=== PATIENT | female | born 2000 | race Asian ===

== ENCOUNTER 2023-09-24 11:08 | Inpatient (IN) ==
[2023-09-24] MEDS ORDERED: ONDANSETRON INJ 2 MG/ML 2 ML VIAL IV STA (11:13)
[2023-09-24] MEDS ORDERED: KETOROLAC TROMETHAMINE 15 MG/ML VIAL IV ONE (11:13)
[2023-09-24] MEDS ORDERED: SODIUM CHLORIDE 0.9% 1,000 ML IV ONE (11:13)
[2023-09-24 12:11] LABS: Basophils # (auto) 0.07 K/uL (0.00-0.20); Basophils % (auto) 0.4 %; Eosinophils # (auto) 0.04 K/uL (0.00-0.50); Eosinophils % (auto) 0.2 %; Immature Granulocytes # (auto) 0.15 K/uL (0.01-0.20); Immature Granulocytes % (auto) 0.8 %; Lymphocytes # (auto) 1.43 K/uL (1.20-3.40); Lymphocytes % (auto) 7.3 %; Mean Corpuscular Hemoglobin 29.4 pg (25.0-34.0); Mean Corpuscular Hgb Conc 33.3 g/dL (32.0-36.0); Mean Corpuscular Volume 88.3 fL (80.0-100.0); Mean Platelet Volume 9.4 fL (9.4-12.4); Monocytes # (auto) 0.98 K/uL (0.11-0.59); Neutrophils # (auto) 16.91 K/uL (1.40-6.50); Neutrophils % (auto) 86.3 %; Platelet Count 440 K/uL (130-400); RDW Coefficient of Variation 11.3 % (11.5-14.5); RDW Standard Deviation 36.4 fL (36.4-46.3); White Blood Count 19.58 K/ul (4.8-10.8)
[2023-09-24] MEDS ORDERED: dexAMETHasone**PF** 10 MG/ML VIAL IV ONE (12:23)
[2023-09-24] MEDS ORDERED: AMPICILLIN/SULBACTAM SOD 3,000 MG in SODIUM CHLOR 0.9% MINI-B 100 ML IV STA (12:23)
[2023-09-24 12:31] LABS: Albumin Globulin Ratio 1.2 (0.9-2); Albumin Level 4.8 gm/dl (3.4-5.0); BUN Creatinine Ratio 15.2 (10-20); Bilirubin,Total 0.5 mg/dl (0.2-1.0); Calcium 9.7 mg/dl (8.6-10.3); Globulin 4.1 gm/dl (2.5-4.0); Potassium 3.8 mmol/L (3.5-5.1); Total Protein 8.9 gm/dl (6.0-8.3)
--- NOTE | 2023-09-24 12:38 | Electrocardiogram Report ---
Test Reason : Blood Pressure : / mmHG Vent. Rate : 106 BPM Atrial Rate : 106 BPM P-R Int : 136 ms QRS Dur : 078 ms QT Int : 316 ms P-R-T Axes : 050 116 029 degrees QTc Int : 419 ms Sinus tachycardia Right axis deviation Abnormal ECG No previous ECGs available Confirmed by Refugio Saba ([id number]) on 09/24/2023 12:38:45 PM Referred By: Confirmed By:Refugio Saba
[2023-09-24 13:02] LABS: Adenovirus PCR Not Detected (NotDetected); Bordetella parapertussis PCR Not Detected (NotDetected); Bordetella pertussis PCR Not Detected (NotDetected); Chlamydia pneumoniae PCR Not Detected (NotDetected); Coronavirus 229E PCR Not Detected (NotDetected); Coronavirus CoV-2 (COVID19)PCR Not Detected (NotDetected); Coronavirus HKU1 PCR Not Detected (NotDetected); Coronavirus NL63 PCR Not Detected (NotDetected); Coronavirus OC43PCR Not Detected (NotDetected); Human Metapneumovirus PCR Not Detected (NotDetected); Influenza A PCR Not Detected (NotDetected); Influenza B PCR Not Detected (NotDetected); Mycoplasma pneumoniae PCR Not Detected (NotDetected); Parainfluenza Virus 1 PCR Not Detected (NotDetected); Parainfluenza Virus 2 PCR Not Detected (NotDetected); Parainfluenza Virus 3 PCR Not Detected (NotDetected); Parainfluenza Virus 4 PCR Not Detected (NotDetected); Respiratory Syncytial VirusPCR Not Detected (NotDetected); Rhinovirus/Enterovirus PCR Not Detected (NotDetected)
--- NOTE | 2023-09-24 13:14 | XRay Report ---
XR soft tissue neck CLINICAL HISTORY: Sore throat. COMPARISON STUDY: None. FINDINGS: There is mild diffuse prevertebral soft tissue thickening. There is also mild thickening of the epiglottis and aryepiglottic folds. No radiopaque foreign bodies identified. The trachea is midl ine and appears patent. No soft tissue gas identified. IMPRESSION: Diffuse thickening of the hypopharynx which favors a pharyngitis. There is also thickeni ng of the epiglottis raising the possibility of a superimposed epiglottitis. ACT 112: Negative or not required by law. Electronically signed by: Bib Fitch M.D. 09/24/2023 1:13 PM
[2023-09-24] MEDS ORDERED: SODIUM CHLORIDE 0.9% 500 ML IV ONE (13:20)
--- NOTE | 2023-09-24 13:25 | Emergency Department Note ---
Impression & Plan Acute epiglottitis, Pharyngitis, Sinus tachycardia ED Provider Note NAME: BORIS LUTHER AGE: 23 SEX: F : 2000 ARRIVES VIA: Walk-In INFORMANT: Patient, ED PROVIDER(S): Naldo Anderson DO CHIEF COMPLAINT: Sore throat HPI: The patient is a 23-year-old female who presented to the emergency department for an evaluation of sore throat. The patient has left-sided pain and swelling. She states she has difficulty swallowing. She notices that she does have a fever. The patient states she has had symptoms for the last few days. She denies having any recent falls. She denies having any abdominal pain or vomiting. She has no sick contacts as far as she knows. The patient denies having any visits to a primary care physician or being started on any antibiotics at this time. ROS: See above HPI for pertinent positives & negatives. A total of 10 systems reviewed and were otherwise negative. PAST MEDICAL HISTORY: See Below PAST SURGICAL HISTORY: See Below FAMILY HISTORY: See Below SOCIAL HISTORY: See Below HOME MEDICATIONS: See Below ALLERGIES: See Below VITALS: See Below PHYSICAL EXAMINATION: GENERAL: Patient is awake alert in no acute distress patient is resting comfortably and showing no signs of anxiety EYES: The conjunctivae are clear. The pupils are round and reactive. EARS, NOSE, MOUTH AND THROAT: The nose is without any evidence of any deformity. There was left-sided swelling with mild erythema especially in the hypopharynx that was visualized. The visualized tonsils show no erythema or exudate. There is no soft palate involvement. NECK: There is no posterior tenderness. There was some anterior tenderness as well as left paravertebral tenderness in the anterior cervical chain. RESPIRATORY: Normal respiratory effort is noted there is no evidence of wheezing rhonchi or rales CARDIOVASCULAR: Tachycardic rate with regular rhythm was noted. There is no definite murmur GASTROINTESTINAL: The abdomen is soft. Abdomen is nontender. MUSCULOSKELETAL/EXTREMITIES: There is no evidence of gross deformity full range of motion is noted in the hips and shoulders. SKIN: There is no obvious evidence of any rash. There are no petechiae, pallor or cyanosis noted. NEUROLOGIC: Patient is awake alert and oriented x3 MEDICAL [id number] MAKING: The patient is a 23-year-old female who presented to the emergency department for an evaluation of sore throat. The patient's history and physical exam did not reveal any definite tonsillar involvement. There is no soft palate involvement. The patient did have significant left-sided tenderness as well as anterior tenderness. For this reason further laboratory and radiographic studies were obtained. The patient was treated with IV fluids and IV pain medication. She was also treated with IV Decadron and IV antibiotics. Plain x- rays were obtained which do appear to show some enlargement of the epiglottis. For this reason CT was obtained which does appear to be consistent with epiglottitis. For this reason I discussed patient's case with the on-call ENT physician. I also discussed this case with [facility]. On reevaluation the patient's heart rate had improved and her symptoms were also improved. Triage Nursing notes reviewed. Prior medical records reviewed Vital Signs: reviewed and remarkable for initial tachycardia and fever. Differential diagnosis: Viral syndrome, tonsillitis, streptococcal pharyngitis, mononucleosis, peritonsillar abscess, retropharyngeal abscess, otitis, pneumonia, influenza, as well as other pathologies. ER treatment provided: See below Diagnostics interpreted by me: ECG: EKG was obtained in the emergency department. My interpretation is sinus tachycardia at 106 bpm. There is no ectopy. There is no acute ST segment abnormalities noted. No previous tracing was available Cardiac Monitoring: An order was placed for continuous cardiac monitoring. The monitor shows a rate of sinus tachycardia 109 bpm with sinus tachycardia. Laboratory studies: As stated above and show below. Imaging studies: See below. Radiographic imaging was reviewed by myself Consultation(s): I discussed this case with Dr. Pat who is on-call for ENT. I discussed this case with Dr Way ED COURSE: Procedures: none Critical Care: I have personally spent greater than 45 minutes of critical care time in the direct management of this patient. This includes bedside care, interpretation of diagnostic studies, and testing, discussion with consultants, patient, and family members, and other required patient management activities. This 45 minutes is in excess of all separately billable procedures. Past Med/Surg History Social History Preferred Language: [place] Feels Safe at Home: Yes Allergies Allergies Allergy/AdvReac Type Severity Reaction Status Date / Time No Known Allergies Allergy Unverified 09/24/23 14:40 Home Meds Home Medications Medication Instructions Recorded Confirmed ibuprofen 200 mg tablet 200 mg PO Q6H PRN PAIN/FEVER 09/24/23 09/24/23 norethindrone 1 mg-ethinyl 1 tab PO QAM 09/24/23 09/24/23 estradiol 20 mcg (21)-iron 75 mg (7) tablet (10/03 (28)) Results & Data (ED) Vital Signs Vital Signs - 24 hr 09/24/23 11:22 Temperature 37.9 C H Temperature Source Oral Pulse Rate 131 H Respiratory Rate 20 Blood Pressure 139/94 Blood Pressure Mean 109 Pulse Oximetry 97 Oxygen Delivery Method Room Air Sepsis Recent Fever Within 48 Hours Yes Sepsis New/Unexplained Change in Mental Status N/A Sepsis Action Taken by Nursing No Action Required Home Medications Current Medication List: was personally reviewed by me Laboratory Data Attestation: I reviewed the patient's lab results. 09/24/23 11:30 09/24/23 11:30 Lab Results 09/24/23 09/24/23 09/24/23 Range/Units 11:30 11:35 Unknown WBC 19.58 H (4.8-10.8) K/ul RBC 5.06 (4.70-6.10) M/uL Hgb 14.9 (14.0-18.0) g/dl Hct 44.7 (42.0-52.0) % MCV 88.3 (80.0-100.0) fL MCH 29.4 (25.0-34.0) pg MCHC 33.3 (32.0-36.0) g/dL RDW Std Deviation 36.4 (36.4-46.3) fL RDW Coeff of Denae 11.3 L (11.5-14.5) % Plt Count 440 H (130-400) K/uL MPV 9.4 (9.4-12.4) fL Immature Gran % (Auto) 0.8 % Neut % (Auto) 86.3 % Lymph % (Auto) 7.3 % Marion % (Auto) 5.0 % Eos % (Auto) 0.2 % Baso % (Auto) 0.4 % Neut # (Auto) 16.91 H (1.40-6.50) K/uL Lymph # (Auto) 1.43 (1.20-3.40) K/uL Marion # (Auto) 0.98 H (0.11-0.59) K/uL Eos # (Auto) 0.04 (0.00-0.50) K/uL Baso # (Auto) 0.07 (0.00-0.20) K/uL Immature Gran # (Auto) 0.15 (0.01-0.20) K/uL Sodium 140 (136-145) mmol/L Potassium 3.8 (3.5-5.1) mmol/L Chloride 103 (98-107) mmol/L Carbon Dioxide 28 (21-32) mmol/L Anion Gap 9 (3-11) BUN 10 (6-23) mg/dl Creatinine 0.66 (0.6-1.4) mg/dl Est Cr Clr Drug Dosing 124.7 ml/min Est GFR ( Amer) > 150.0 ml/min Est GFR (Non-Af Amer) 138.2 ml/min BUN/Creatinine Ratio 15.2 (10-20) Glucose 97 (70-99(Fasting)) mg/dl Calcium 9.7 (8.6-10.3) mg/dl Total Bilirubin 0.5 (0.2-1.0) mg/dl AST 19 (13-39) U/L ALT 12 (7-52) U/L Alkaline Phosphatase 54 (34-104) U/L Total Protein 8.9 H (6.0-8.3) gm/dl Albumin 4.8 (3.4-5.0) gm/dl Globulin 4.1 H (2.5-4.0) gm/dl Albumin/Globulin Ratio 1.2 (0.9-2) Adenovirus (PCR) Not Detected (NotDetected) B. pertussis DNA (PCR) Not Detected (NotDetected) B.parapertussis DNA PCR Not Detected (NotDetected) C. pneumoniae DNA (PCR) Not Detected (NotDetected) Coronavirus OC43 (PCR) Not Detected (NotDetected) Coronavirus HKU1 (PCR) Not Detected (NotDetected) Coronavirus 229E (PCR) Not Detected (NotDetected) SARS-CoV-2 (PCR) Not Detected (NotDetected) Coronavirus NL63 (PCR) Not Detected (NotDetected) Monoscreen Negative (Negative) Human Metapneumovir PCR Not Detected (NotDetected) Influenza Type A (PCR) Not Detected (NotDetected) Influenza Type B (PCR) Not Detected (NotDetected) M. pneumoniae (PCR) Not Detected (NotDetected) Parainfluenza 1 (PCR) Not Detected (NotDetected) Parainfluenza 2 (PCR) Not Detected (NotDetected) Parainfluenza 3 (PCR) Not Detected (NotDetected) Parainfluenza 4 (PCR) Not Detected (NotDetected) RSV (PCR) Not Detected (NotDetected) Entero/Rhino (PCR) Not Detected (NotDetected) Group A Strep (PCR) NOT DETECTED (NotDetected) Administered Medications Discontinued Medications Dexamethasone Sodium Phosphate (DexamethasonePf 10 Mg/Ml Vial) 10 mg IV NOW ONE Stop: 09/24/23 12:24 Last Admin: 09/24/23 12:58 Dose: 10 mg Documented By: HS Sodium Chloride (Nss) 1,000 mls @ 999 mls/hr IV .Q1H1M ONE Stop: 09/24/23 12:13 Last Infusion: 09/24/23 13:34 Dose: Infused Documented By: [facility] Admin: 09/24/23 12:01 Dose: 999 mls/hr Documented By: DS Ampicillin Sodium/Sulbactam Sodium 3,000 mg/ Sodium Chloride 100 mls @ 200 mls/hr IV NOW STA Stop: 09/24/23 12:52 Last Infusion: 09/24/23 13:34 Dose: Infused Documented By: [facility] Admin: 09/24/23 12:58 Dose: 200 mls/hr Documented By: HS Sodium Chloride (Nss) 500 mls @ 999 mls/hr IV .Q31M ONE Stop: 09/24/23 13:50 Last Infusion: 09/24/23 14:44 Dose: Infused Documented By: [facility] Admin: 09/24/23 13:59 Dose: 999 mls/hr Documented By: HS Ioversol (Optiray 320 500ml) 90 ml IV ONCE ONE Stop: 09/24/23 13:41 Last Admin: 09/24/23 13:38 Dose: 90 ml Documented By: BRM Ketorolac Tromethamine (Ketorolac Tromethamine 15 Mg/Ml Vial) 15 mg IV NOW ONE Stop: 09/24/23 11:14 Last Admin: 09/24/23 12:01 Dose: 15 mg Documented By: SHAHNAZ Ondansetron HCl (Ondansetron Inj 2 Mg/Ml 2 Ml Vial) 4 mg IV NOW STA Stop: 09/24/23 11:14 Last Admin: 09/24/23 12:01 Dose: 4 mg Documented By: SHAHNAZ Imaging Data Attestation: I personally reviewed and interpreted this imaging study as follows: My Impression: X-ray of the soft tissue neck was obtained in the emergency department. My interpretation is enlargement of the epiglottis, final report below. Radiologist's Impression: Soft Tissue Neck X-Ray 09/24/23 12:23 XR soft tissue neck CLINICAL HISTORY: Sore throat. COMPARISON STUDY: None. FINDINGS: There is mild diffuse prevertebral soft tissue thickening. There is also mild thickening of the epiglottis and aryepiglottic folds. No radiopaque foreign bodies identified. The trachea is midline and appears patent. No soft tissue gas identified. IMPRESSION: Diffuse thickening of the hypopharynx which favors a pharyngitis. There is also thickening of the epiglottis raising the possibility of a superimposed epiglottitis. ACT 112: Negative or not required by law. Electronically signed by: Bib Fitch M.D. 09/24/2023 1:[address] 09/24/23 13:20 CT OF THE NECK WITH IV CONTRAST CLINICAL HISTORY: Sore throat. COMPARISON STUDY: Neck radiographs performed earlier today. TECHNIQUE: Following IV administration of 90 mL of Optiray, helical axial images of the neck were obtained. Sagittal and coronal reconstructions were viewed. Automated exposure control was utilized for the study. A dose lowering technique was utilized adhering to the principles of ALARA. FINDINGS: Visualized portions of the intracranial contents are unremarkable. Orbits are within normal limits. Sinuses and mastoid air cells are clear. Major vasculature of the neck is patent. Parotid and right submandibular glands are normal. There is moderate left parapharyngeal edema, adjacent to the left submandibular gland. There is mild prevertebral edema. There is thickening of the bilateral aryepiglottic folds, left greater than right. There is also mild to moderate thickening of the epiglottis. No rim-enhancing fluid collection is present. There is no soft tissue gas. The pharyngeal/epiglottic edema results in moderate supraglottic airway narrowing. The bilateral palatine tonsils are mildly enlarged. Lung apices are clear. Mildly enlarged bilateral cervical lymph nodes are likely reactive. Index left level 2 node on image 183 of 405 measures 2.5 x 1.1 cm. IMPRESSION: 1. Findings consistent with pharyngitis. Superimposed epiglottitis cannot be excluded. Left parapharyngeal edema including thickening of the aryepiglottic folds, left greater than right and mild to moderate thickening of the epiglottis. No abscess. Mild prevertebral edema. The edema and soft tissue thickening results in moderate supraglottic airway narrowing. 2. Enlarged bilateral cervical lymph nodes which are likely reactive. 3. Mildly enlarged bilateral palatine tonsils. ACT 112: Negative or not required by law. Electronically signed by: David Kincaid M.D. 09/24/2023 1:56 PM Discharge Plan Visit Data Chief Complaint: Throat Pain Stated Complaint: THROWING UP, SORE THROAT ED Provider: Naldo Anderson Discharge Problem: Acute epiglottitis, Pharyngitis, Sinus tachycardia Patient Disposition: Being Evaluated by Hospitalist Forms Stand Alone Forms: [employer] Prescriptions Prescriptions: No Action norethindrone-e.estradiol-iron [10/03 (28)] 1 mg-20 mcg (21)/75 mg (7) tablet 1 tab PO QAM ibuprofen 200 mg Tablet 200 mg PO Q6H PRN (Reason: PAIN/FEVER) Referrals Referrals: PCP,NO [Primary Care Provider] - Discharge Problem: Acute epiglottitis Qualifiers: Airway obstruction: without obstruction Qualified Code(s): J05.10 - Acute epiglottitis without obstruction Pharyngitis Qualifiers: Pharyngitis/tonsillitis etiology: unspecified etiology Qualified Code(s): J02.9 - Acute pharyngitis, unspecified
[2023-09-24] MEDS ORDERED: OPTIRAY 320 500ml IV ONE (13:40)
--- NOTE | 2023-09-24 13:57 | CT Scan Report ---
CT OF THE NECK WITH IV CONTRAST CLINICAL HISTORY: Sore throat. COMPARISON STUDY: Neck radiographs performed earlier today. TECHNIQUE: Following IV administration of 90 mL of Optiray, helical axial images of the neck were ob tained. Sagittal and coronal reconstructions were viewed. Automated exposure control was utilized f or the study. A dose lowering technique was utilized adhering to the principles of ALARA. FINDINGS: Visualized portions of the intracranial contents are unremarkable. Orbits are within joseph l limits. Sinuses and mastoid air cells are clear. Major vasculature of the neck is patent. Parotid a nd right submandibular glands are normal. There is moderate left parapharyngeal edema, adjacent to th e left submandibular gland. There is mild prevertebral edema. There is thickening of the bilateral ar yepiglottic folds, left greater than right. There is also mild to moderate thickening of the epiglott is. No rim-enhancing fluid collection is present. There is no soft tissue gas. The pharyngeal/epiglot tic edema results in moderate supraglottic airway narrowing. The bilateral palatine tonsils are mildl y enlarged. Lung apices are clear. Mildly enlarged bilateral cervical lymph nodes are likely reactive . Index left level 2 node on image 183 of 405 measures 2.5 x 1.1 cm. IMPRESSION: 1. Findings consistent with pharyngitis. Superimposed epiglottitis cannot be excluded. Left paraphary ngeal edema including thickening of the aryepiglottic folds, left greater than right and mild to mode rate thickening of the epiglottis. No abscess. Mild prevertebral edema. The edema and soft tissue thi ckening results in moderate supraglottic airway narrowing. 2. Enlarged bilateral cervical lymph nodes which are likely reactive. 3. Mildly enlarged bilateral palatine tonsils. ACT 112: Negative or not required by law. Electronically signed by: David Kincaid M.D. 09/24/2023 1:56 PM
[2023-09-24] MEDS ORDERED: VANCOMYCIN HCL 1,250 MG in SODIUM CHLORIDE 0.9% 250 ML IV STA (14:38)
--- NOTE | 2023-09-24 15:25 | History & Physical Report ---
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 (2) Pharyngitis: Plan: Group A strep negative [employer] upper respiratory panel PCR negative No abscess therefore ENT consult deferred (3) Sepsis: Plan: SIRS criteria met with tachycardia and WBC in setting of epiglottitis. Blood culture / lactate not ordered in ER, will get these now Agree with vancomycin/ceftriaxone for antibiotic coverage (4) Sinus tachycardia: Plan VTE Prophylaxis - low risk Diet - NPO Disposition - admit to ICU Admission and Anticipated Discharge Date Admission Date: September 24, 2023 History of Present Illness Chief Complaint: Sore throat Primary Care Provider: NO PCP Lise Zafar is a 23 year old female who presents to the ER with sore throat and intermittent fevers. Initial illness she was feeling generally unwell with mild sore throat over the weekend with chills but appeared to be recovering initially. On thursday she appeared to get worse with significant progression with chills, fatigue and sore throat over the last 24 hours. No difficulty breathing or abnormal breath sounds. Reports mild dry cough with feeling of phlegm getting stuck. No history of immunosuppression, severe infections or respiratory diseases. No nausea, vomiting, abdominal pain, diarrhea, urinary symptoms. No known significant exposure. Reports only recent travel to [facility] - returned on September 12. Allergies Allergy/AdvReac Type Severity Reaction Status Date / Time No Known Allergies Allergy Unverified 09/24/23 14:40 Home Medications Medication Instructions Recorded Confirmed Type ibuprofen 200 mg tablet 200 mg PO Q6H PRN PAIN/FEVER 09/24/23 09/24/23 History norethindrone 1 mg-ethinyl 1 tab PO QAM 09/24/23 09/24/23 History estradiol 20 mcg (21)-iron 75 mg (7) tablet (10/03 (28)) Past Med/Surg History Medical History (Updated 09/24/23 @ 15:[address] MD) No pertinent past medical history Surgical History (Updated 09/24/23 @ 15:[address] MD) No pertinent past surgical history Social History Preferred Language: Kiny[place] Feels Safe at Home: Yes Review of Systems Review of Systems: All systems reviewed & are unremarkable except as noted in HPI & below Physical Exam Constitutional: WD/WN, vitals as above Eyes: normal pupil size ENMT: external ear and nose normal, oropharynx normal Respiratory: normal respiratory effort; no respiratory distress Ausc ultation: lungs clear to auscultation bilaterally; breath sounds present, no diminished lung sounds, no crackles, no rales, no rhonchi and no wheezes Cardiovascular: Rate/Rhythm: regular rhythm and + tachycardic Heart Sounds: no murmur Extremities: normal capillary refill; no calf tenderness and no pedal edema Gastrointestinal (Abdomen): normal bowel sounds, soft, nontender, no hepatosplenomegaly Musculoskeletal: no cyanosis or clubbing, extremities motor strength 5/5 Skin: no rashes, warm and dry Neurologic: moves all extremities and awake; not confused Psychiatric: A+Ox3, euthymic affect Results & Data Results & Data Vital Signs (Past 12 Hours) Vital Signs Temp Pulse Resp BP Pulse Ox O2 Del Method 09/24/23 11:22 37.9 C H 131 H 20 139/94 97 Room Air Laboratory Results Abnormal lab results 09/24/23 Range/Units 11:30 WBC 19.58 H (4.8-10.8) K/ul RDW Coeff of Denae 11.3 L (11.5-14.5) % Plt Count 440 H (130-400) K/uL Neut # (Auto) 16.91 H (1.40-6.50) K/uL [facility] # (Auto) 0.98 H (0.11-0.59) K/uL Total Protein 8.9 H (6.0-8.3) gm/dl Globulin 4.1 H (2.5-4.0) gm/dl Diagnostic Findings XR soft tissue neck CLINICAL HISTORY: Sore throat. COMPARISON STUDY: None. FINDINGS: There is mild diffuse prevertebral soft tissue thickening. There is also mild thickening of the epiglottis and aryepiglottic folds. No radiopaque foreign bodies identified. The trachea is midline and appears patent. No soft tissue gas identified. IMPRESSION: Diffuse thickening of the hypopharynx which favors a pharyngitis. There is also thickening of the epiglottis raising the possibility of a superimposed epiglottitis. CT OF THE NECK WITH IV CONTRAST CLINICAL HISTORY: Sore throat. COMPARISON STUDY: Neck radiographs performed earlier today. TECHNIQUE: Following IV administration of 90 mL of Optiray, helical axial adelina ges of the neck were obtained. Sagittal and coronal reconstructions were viewed. Automated exposure control was utilized for the study. A dose lowering technique was utilized adhering to the principles of ALARA. FINDINGS: Visualized portions of the intracranial contents are unremarkable. Orbits are within normal limits. Sinuses and mastoid air cells are clear. Major vasculature of the neck is patent. Parotid and right submandibular glands are normal. There is moderate left parapharyngeal edema, adjacent to the left submandibular gland. There is mild prevertebral edema. There is thickening of the bilateral aryepiglottic folds, left greater than right. There is also mild to moderate thickening of the epiglottis. No rim-enhancing fluid collection is present. There is no soft tissue gas. The pharyngeal/epiglottic edema results in moderate supraglottic airway narrowing. The bilateral palatine tonsils are mildly enlarged. Lung apices are clear. Mildly enlarged bilateral cervical lymph nodes are likely reactive. Index left level 2 node on image 183 of 405 measures 2.5 x 1.1 cm. IMPRESSION: 1. Findings consistent with pharyngitis. Superimposed epiglottitis cannot be excluded. Left parapharyngeal edema including thickening of the aryepiglottic folds, left greater than right and mild to moderate thickening of the epiglottis. No abscess. Mild prevertebral edema. The edema and soft tissue thickening results in moderate supraglottic airway narrowing. 2. Enlarged bilateral cervical lymph nodes which are likely reactive. 3. Mildly enlarged bilateral palatine tonsils. Medications Administered ER Medications Given: Normal saline 1000ml bolus Ondansetron 4mg IV Toradol 15mg IV Dexamethasone 10mg IV Unasyn 3000mg IV Normal saline 500ml bolus Vancomycin 1250mg IV Ceftriaxone 2000mg IV ECG Rate (beats per minute): 106 Rhythm: sinus tachycardia Findings: + other (right axis deviation) Comparison ECG Date: no prior available Code Status & VTE Plan Code Status Full VTE Prophylaxis Plan VTE Prophylaxis will be ordered: No PG Care Time/CCT Total # of Minutes Spent Total Time Spent with Patient: Total time spent is greater than 50% in coordination of care (as documented) at patient's floor/unit and/or counseling patient: Coding Level of Care Code 46404 INT INP/OBS CARE 2MIN Diagnoses Acute epiglottitis J05.10 Airway obstruction: without obstruction Pharyngitis J02.9 Pharyngitis/tonsillitis etiology: unspecified etiology Sepsis A41.9 Sinus tachycardia R00.0 (1) Acute epiglottitis Airway obstruction: without obstruction Qualified Code(s): J05.10 - Acute epiglottitis without obstruction (2) Pharyngitis Pharyngitis/tonsillitis etiology: unspecified etiology Qualified Code(s): J02.9 - Acute pharyngitis, unspecified
--- NOTE | 2023-09-24 15:43 | XRay Report ---
XR chest 1V portable HISTORY: sepsis COMPARISON: None. FINDINGS: The lungs are clear. Cardiac silhouette is normal in size. No pleural effusions. No pneumot horax. IMPRESSION: No acute process. ACT 112: Negative or not required by law. Electronically signed by: Bib Fitch M.D. 09/24/2023 3:41 PM
[2023-09-24] MEDS ORDERED: ACETAMINOPHEN 1,000 MG/100 ML VIAL IV PRN (16:10)
--- NOTE | 2023-09-24 16:57 | Critical Care Consultation ---
Date of Consultation September 24, 2023 Assessment & Plan (1) Acute epiglottitis: (2) Pharyngitis: (3) Tonsillitis: Plan Patient is a 23 yo F w/ an unremarkable PMHx who presented to the [facility] ED w/ severe sore throat, swollen cervical lymph node on left side, after feeling like her throat was closing at 5 am and getting worse before presenting to [facility] ED around noon. (1) Epiglottitis (2) Pharyngitis (3) Tonsillitis (4) Admitted to intensive care unit: Plan Reason Critically Ill: 23 yo F with pharyngitis, superimposed epiglottitis, tonsillitis admitted to ICU for airway monitoring in setting of potential airway narrowing/closure. ENT if required. Neuro - No acute needs Cardiac - No acute needs - currently no evidence of shock or need for vasoactive medications Respiratory - Pharyngitis, tonsillitis, possible epiglottitis noted on CT-Neck - ENT not consulted, if patient's status worsens ENT consult will be considered - On physical exam with appropriate phonation, ventilation, oxygenation and secretion management, no dyspnea - Patient noted to have pharyngitis, tonsillitis, and possible epiglottitis on CT-Neck - L. submandibular/l. neck swollen, soft and noted left-sided tonsillitis on exam - Trachea midline, easily palpable - See rest in ID below GI - - diet, full liquids ordered for dinner - Advance diet as tolerated RENAL/LYTES - - No acute needs - No acute needs - spontaneous voiding ENDO - No acute needs HEME - No acute needs ID - Pharyngitis, tonsillitis, possible epiglottis noted on CT-Neck - strep negative, Monospot test negative - Respiratory BioFire panel negative - Blood cultures x2, pending - Augmentin, 500 mg, suspension, PO, TID - Decadron 2mg, PO, elixir, Q12 hrs LINES/IV ACCESS - PIV Continue use of these lines DVT PROPHYLAXIS - ambulation Supervising Physician Co-Signing Physician Notes Patient seen and examined. MR reviewed. Images were independently reviewed agree with assessment plan as noted with family practice resident. Discussed in detail with him. 23-year-old female with epiglottitis. She is responding favorably to antibiotics and steroids. She is being admitted to the ICU for observation. She is on room air. She is managing her secretions. Her voice feels normal. She is complaining of a little bit of pain with swallowing but this has improved. Will continue antibiotics but no need for MRSA coverage. Anaerobic coverage will be continued show either Augmentin or clindamycin would be appropriate. Will continue dexamethasone. Provide coolmist humidification. Can advance diet to clears. Will reassess in a.m. and if does well can be turned back over to the hospitalist for ultimate disposition. History of Present Illness Reason for Consultation: epiglottitis in setting of pharyngitis and tonsillitis Attending Physician: Justice Way MD History of Present Illness Patient is a 23 yo F w/ an unremarkable PMHx who presented to the [facility] ED w/ severe sore throat, swollen cervical lymph node on left side, after feeling like her throat was closing at 5 am. Patient had a fever last . night, 09/17/23 when returning to [employer]. That went away and returned yesterday, at which point in time she began to take ibuprofen and also took some Dayquil. Patient denies nasal congestion, sneezing, sinus pain/pressure. The patient's sense of her throat closing got much worse throughout morning, could not vocalize due to inability to open her throat or move vocal cords. Patient does not have any other medical conditions and is on OCPs for cont rol. Patient does not have any known sick contacts either back home or here at [employer]. Patient has never had such an episode before. She has received some antibiotics since arriving in the ED and that has improved sensation of the throat-tightening and inability to vocalize before being admitted to the ICU. Patient had recent trips to the dentist on 08/24/24 and 09/16/23 to get cavities filled. Allergies Allergy/AdvReac Type Severity Reaction Status Date / Time No Known Allergies Allergy Unverified 09/24/23 14:40 Home Medications Medication Instructions Recorded Confirmed Type ibuprofen 200 mg tablet 200 mg PO Q6H PRN PAIN/FEVER 09/24/23 09/24/23 History norethindrone 1 mg-ethinyl 1 tab PO QAM 09/24/23 09/24/23 History estradiol 20 mcg (21)-iron 75 mg (7) tablet (10/03 (28)) Patient History Medical History (Updated 09/24/23 @ 18:13 by Ata Saldaña MD) No pertinent past medical history Surgical History (Updated 09/24/23 @ 15:[address] MD) No pertinent past surgical history Social History Smoking Status: Never smoker Hx Substance Use: No Preferred Language: Setswana Communication Ability: Effective Insole And Outsole Preparer Required: No Beliefs That Will Affect Care: None Current Living Situation: Alone Current Living Situation Comment: Friends on campus Feels Safe at Home: Yes Safety Concerns: Feels Safe At This Time Assistive Devices: None Review of Systems Constitutional: + fever and + chills (chills during feel ing of feverishness on 09/17/23); no body aches and no fatigue Ear, Nose, Mouth, Throat: + dental caries (did not feel pain or ne rve irritation; both cavities during cleaning); no ear pain, no dizziness, no nasal congestion and no sinus pain/pressure did not feel pain or nerve irritation; both cavities noted during cleaning on break; pt opted to have them filled on different days due to them being on opposite sides of mouth Respiratory: no cough, no chest congestion and no dyspnea Cardiovascular: no chest pain and no palpitations Gastrointestinal: no abdominal pain, no nausea, no vomiting, no constipation and no diarrhea/loose stools Physical Exam Constitutional: WD/WN, vitals as above ENMT: Mouth: no oropharynx abnormality, no tongue abnormality, no muffled voice and no drooling Throat: + tonsil abnormality (left tonsil enlarged relative to right, non-erythematous) Respiratory: normal respiratory effort, lungs clear to auscultation Cardiovascular: RRR, no murmur, no edema Gastrointestinal (Abdomen): normal bowel sounds, soft, nontender, no hepatosplenomegaly Psychiatric: A+Ox3, euthymic affect Lymphatic: + cervical lymphadenopathy (mild lymph n ode swelling, l. anterior cervical lymph node) Results & Data Results & Data Vital Signs (Past 12 Hours) Vital Signs Temp Pulse Pulse Resp BP BP Pulse Ox 09/24/23 16:15 09/24/23 16:13 97 H 09/24/23 16:10 36.9 C 95 H 20 132/97 97 09/24/23 15:53 37.5 C 09/24/23 15:32 96 H 20 124/91 97 09/24/23 11:22 37.9 C H 131 H 20 139/94 97 Pulse Ox O2 Del Method O2 Del Method 09/24/23 16:15 98 Room Air 09/24/23 16:13 09/24/23 16:10 Room Air 09/24/23 15:53 09/24/23 15:32 Room Air 09/24/23 11:22 Room Air (1) Acute epiglottitis Airway obstruction: without obstruction Qualified Code(s): J05.10 - Acute epiglottitis without obstruction (2) Pharyngitis Pharyngitis/tonsillitis etiology: unspecified etiology Qualified Code(s): J02.9 - Acute pharyngitis, unspecified
[2023-09-24] MEDS: ICU Protocol for HYPERglycemia SCH ×2 (17:01→20:40)
[2023-09-24] MEDS ORDERED: VANCOMYCIN CONSULT ACTIVE PRN (17:02)
--- NOTE | 2023-09-24 17:19 | Pharmacy Report ---
Pharmacy PK ABX Note - Date of Service September 24, 2023 - Assessment and Plan Assessment 23 year old F receiving vancomycin/ceftriaxone for treatment of sepsis from acute epiglottitis/pharyngitis. Grp A strep negative, Blood cultures pending. Biofire respiratory panel negative. Plan Vancomycin * Loading dose: 1250 mg IV x 1 * Maintenance dose: 1000 mg IV every 8 hours * Regimen is predicted to achieve target AUC/JONNY of 400-600 mg/L.hr for the first 7 doses, may require reduction with continued doses * Early random level to help assess dosin/12 @1200 Pharmacy will continue to follow and will adjust dose/frequency as necessary. Thank you. Pharmacy has transitioned to AUC monitoring for vancomycin. AUC/JONNY is the preferred PK/PD target and is associated with decreased risk of nephrotoxicity compared to traditional trough targets.
[2023-09-24] MEDS: SODIUM CHLORIDE 0.9% 1,000 ML IV SCH (17:49)
[2023-09-24] MEDS: DEXAMETHASONE CONC 1 MG/ML 30 ML PO SCH (20:25)
[2023-09-24] MEDS: AMOXICILLIN/CLAVULANATE SUSP 250/62.5MG 5ML 75ML BTL PO SCH (20:25)
[2023-09-24] MEDS ORDERED: AMOXICILLIN/CLAVULANATE SUSP 250/62.5MG 5 ML UDP PO SCH (21:00)
[2023-09-24] MEDS ORDERED: VANCOMYCIN HCL 1,000 MG in SODIUM CHLORIDE 0.9% 250 ML IV SCH (22:00)
[2023-09-25] MEDS: SODIUM CHLORIDE 0.9% 1,000 ML IV SCH (01:56)
[2023-09-25 05:14] LABS: Basophils # (auto) 0.04 K/uL (0.00-0.20); Basophils % (auto) 0.2 %; Eosinophils # (auto) 0.01 K/uL (0.00-0.50); Eosinophils % (auto) 0.1 %; Hematocrit (blood only) 39.1 % (37.0-47.0); Immature Granulocytes # (auto) 0.17 K/uL (0.01-0.20); Lymphocytes # (auto) 1.39 K/uL (1.20-3.40); Lymphocytes % (auto) 7.9 %; Mean Corpuscular Hemoglobin 29.8 pg (25.0-34.0); Mean Corpuscular Hgb Conc 33.2 g/dL (32.0-36.0); Mean Corpuscular Volume 89.7 fL (80.0-100.0); Mean Platelet Volume 9.3 fL (9.4-12.4); Monocytes # (auto) 0.63 K/uL (0.11-0.59); Monocytes % (auto) 3.6 %; Neutrophils # (auto) 15.28 K/uL (1.40-6.50); Neutrophils % (auto) 87.2 %; Platelet Count 377 K/uL (130-400); RDW Coefficient of Variation 11.2 % (11.5-14.5); RDW Standard Deviation 36.6 fL (36.4-46.3); Red Blood Count 4.36 M/uL (4.20-5.40); White Blood Count 17.52 K/ul (4.8-10.8)
[2023-09-25 05:28] LABS: Anion Gap 8 (3-11); Calcium 8.8 mg/dl (8.6-10.3); Carbon Dioxide 24 mmol/L (21-32); Chloride 105 mmol/L (98-107); Potassium 4.4 mmol/L (3.5-5.1); Sodium 137 mmol/L (136-145)
[2023-09-25 05:33] LABS: BUN Creatinine Ratio 17.5 (10-20); Blood Urea Nitrogen 10 mg/dl (6-23); Creatinine Clr Calc Pharmacy 122.7 ml/min; Est GFR (African American) > 150.0 ml/min; Est GFR (Non-African American) 132.5 ml/min; Glucose 116 mg/dl (70-99(Fasting))
--- NOTE | 2023-09-25 07:42 | Critical Care Progress Note ---
Date of Service September 25, 2023 Assessment & Plan (1) Acute epiglottitis: (2) Pharyngitis: (3) Tonsillitis: Plan Patient is a 23 yo F w/ an unremarkable PMHx who presented to the [facility] ED w/ severe sore throat, swollen cervical lymph node on left side, after feeling like her throat was closing at 5 am and getting worse before presenting to [facility] ED around noon. Plan Neuro - No acute needs Cardiac - No acute needs - currently no evidence of shock or need for vasoactive medications Respiratory - Pharyngitis, tonsillitis, possible epiglottitis noted on CT-Neck - ENT not consulted, if patient's status worsens ENT consult will be considered - On physical exam with appropriate phonation, ventilation, oxygenation and secretion management, no dyspnea - Patient noted to have pharyngitis, tonsillitis, and possible epiglottitis on CT-Neck - L. submandibular/l. neck swollen, soft and noted left-sided tonsillitis on exam - Trachea midline, easily palpable - See rest in ID below GI - - diet, full liquids ordered for dinner - Advance diet as tolerated RENAL/LYTES - - No acute needs - No acute needs - spontaneous voiding ENDO - No acute needs HEME - No acute needs ID - Pharyngitis, tonsillitis, possible epiglottis noted on CT-Neck - strep negative, Monospot test negative - Respiratory BioFire panel negative - Blood cultures x2, pending - Augmentin (875/125) mg, tablet, PO, BID, continue for 2 weeks starting on 09/25/23 - Decadron 2mg, PO, elixir, Q12 hrs can continue for 2 more days starting on 09/25/23 LINES/IV ACCESS - PIV Continue use of these lines DVT PROPHYLAXIS - ambulation Admission and Anticipated Discharge Date Admission Date: September 24, 2023 Supervising Physician Co-Signing Physician Notes Patient seen and examined. EMR reviewed. Discussed with bedside critical care nurse and with family practice resident and on multidisciplinary rounds. The patient is improving. She is not having any issues swallowing or breathing. She is tolerating liquids. Advance diet. Continue Augmentin for 2 weeks. Will need outpatient follow-up with ENT. Steroids for additional 24 hours then these can likely be stopped as well. The patient's critical care issues have resolved. She will be transferred out of the intensive care unit. Ultimate disposition deferred to the hospitalist service. Feel free to contact us with new or progressive critical care issues Subjective Patient is a 23 yo F w/ an unremarkable PMHx on OCPs for control, who presented to the [facility] ED w/ severe sore throat, swollen cervical lymph node on left side, after feeling like her throat was closing yesterday at 5 am. Recent history of trips to the dentist for cavity filling on 08/24/23 and 09/16/23. Patient continues to deny nasal congestion, sneezing, sinus pain/pressure. The patient's sense of throat closing, pain w/ swallowing, continue this morning but are mild in nature. Patient able to vocalize, phonate well. Patient continues to feel better on antibiotics and steroids. Review of Systems Constitutional: no fever, no chills, no body aches and no fatigue Ear, Nose, Mouth, Throat: + dental caries (recent Hx of dental car ies, none visible on exam); no ear pain, no dizziness, no nasal congestion and no sinus pain/pressure did not feel pain or nerve irritation; both cavities noted during cleaning on break; pt opted to have them filled on different days due to them being on opposite sides of mouth Respiratory: no cough, no chest congestion and no dyspnea Cardiovascular: no chest pain and no palpitations Gastrointestinal: no abdominal pain, no nausea, no vomiting, no constipation and no diarrhea/loose stools Physical Exam Constitutional: WD/WN, vitals as above ENMT: Mouth: no oropharynx abnormality, no tongue abnormality, no muffled voice and no drooling Throat: + tonsil abnormality (left tonsil enlarged relative to right, non-erythematous) Respiratory: normal respiratory effort, lungs clear to auscultation Cardiovascular: RRR, no murmur, no edema Gastrointestinal (Abdomen): normal bowel sounds, soft, nontender, no hepatosplenomegaly Psychiatric: A+Ox3, euthymic affect Lymphatic: + cervical lymphadenopathy (mild lymph n ode swelling, l. anterior cervical lymph node) Results & Data Results & Data Vital Signs (Past 12 Hours) Vital Signs Temp Pulse Resp BP Pulse Ox O2 Del Method 09/25/23 07:01 58 L 16 120/83 98 Room Air 09/25/23 06:00 61 14 97 09/25/23 06:00 111/73 09/25/23 05:00 59 L 16 97 09/25/23 05:00 113/78 09/25/23 04:00 36.5 C 09/25/23 04:00 75 18 97 09/25/23 04:00 106/62 09/25/23 03:00 62 13 97 09/25/23 03:00 120/84 09/25/23 02:00 76 16 99 09/25/23 02:00 123/71 09/25/23 01:00 120/69 09/25/23 01:00 91 H 18 92 09/25/23 00:04 142/95 H 09/25/23 00:00 103 H 18 93 09/25/23 00:00 36.5 C 09/25/23 00:00 88 09/24/23 23:01 114/84 09/24/23 23:00 93 H 20 99 09/24/23 22:00 78 21 97 09/24/23 22:00 104/66 09/24/23 21:00 127/88 09/24/23 21:00 87 25 H 96 09/24/23 20:18 92 H 14 97 09/24/23 20:00 124/90 09/24/23 20:00 36.9 C 09/24/23 19:54 91 H 13 97 Critical Care Results & Data Vital Signs (Past 12 Hours) Vital Signs Temp Pulse Resp BP Pulse Ox O2 Del Method 09/25/23 11:00 69 17 138/95 97 Room Air 09/25/23 09:05 85 16 134/78 98 Room Air 09/25/23 08:00 93 H 17 124/87 99 Room Air 09/25/23 07:01 58 L 16 120/83 98 Room Air 09/25/23 06:00 61 14 97 09/25/23 06:00 111/73 09/25/23 05:00 59 L 16 97 09/25/23 05:00 113/78 09/25/23 04:00 36.5 C 09/25/23 04:00 75 18 97 09/25/23 04:00 106/62 09/25/23 03:00 62 13 97 09/25/23 03:00 120/84 09/25/23 02:00 76 16 99 09/25/23 02:00 123/71 09/25/23 01:00 120/69 09/25/23 01:00 91 H 18 92 09/25/23 00:04 142/95 H 09/25/23 00:00 103 H 18 93 09/25/23 00:00 36.5 C 09/25/23 00:00 88 Lab & Micro Results (Past 24 Hours) RBC 4.36 M/uL (4.20-5.40) 09/25/23 WBC 17.52 K/ul (4.8-10.8) H 09/25/23 Hgb 13.0 g/dl (12.0-16.0) 09/25/23 Hct 39.1 % (37.0-47.0) 09/25/23 MCV 89.7 fL (80.0-100.0) 09/25/23 MCH 29.8 pg (25.0-34.0) 09/25/23 MCHC 33.2 g/dL (32.0-36.0) 09/25/23 RDW Standard Deviation 36.6 fL (36.4-46.3) 09/25/23 RDW Coefficient of Variation 11.2 % (11.5-14.5) L 09/25/23 Plt Count 377 K/uL (130-400) 09/25/23 MPV 9.3 fL (9.4-12.4) L 09/25/23 Neutrophils (%) (Auto) 87.2 % 09/25/23 Lymphocytes (%) (Auto) 7.9 % 09/25/23 Monocytes # (Auto) 0.63 K/uL (0.11-0.59) H 09/25/23 Eosinophils # (Auto) 0.01 K/uL (0.00-0.50) 09/25/23 Immature Granulocyte % (Auto) 1.0 % 09/25/23 Neutrophils # (Auto) 15.28 K/uL (1.40-6.50) H 09/25/23 Lymphocytes # (Auto) 1.39 K/uL (1.20-3.40) 09/25/23 Monocytes # (Auto) 0.63 K/uL (0.11-0.59) H 09/25/23 Eosinophils # (Auto) 0.01 K/uL (0.00-0.50) 09/25/23 Basophils # (Auto) 0.04 K/uL (0.00-0.20) 09/25/23 Immature Granulocyte # (Auto) 0.17 K/uL (0.01-0.20) 4 Na 137 mmol/L (136-145) 09/25/23 K 4.4 mmol/L (3.5-5.1) 09/25/23 Cl 105 mmol/L (98-107) 09/25/23 CO2 24 mmol/L (21-32) 09/25/23 Anion Gap 8 (3-11) 09/25/23 BUN 10 mg/dl (6-23) 09/25/23 Creatinine 0.57 mg/dl (0.6-1.2) L 09/25/23 Estimated GFR ( Amer) > 150.0 ml/min 09/25/23 Estimated GFR (Non-Af Amer) 132.5 ml/min 09/25/23 BUN/Creatinine Ratio 17.5 (10-20) 09/25/23 Glu 116 mg/dl (70-99(Fasting)) H 09/25/23 Ca 8.8 mg/dl (8.6-10.3) 09/25/23 Calcium Level 8.8 mg/dl (8.6-10.3) 09/25/23 04:43 Diagnostic Findings (Past 24 Hours) Soft Tissue Neck X-Ray 09/24/23 12:23 XR soft tissue neck CLINICAL HISTORY: Sore throat. COMPARISON STUDY: None. FINDINGS: There is mild diffuse prevertebral soft tissue thickening. There is also mild thickening of the epiglottis and aryepiglottic folds. No radiopaque foreign bodies identified. The trachea is midline and appears patent. No soft tissue gas identified. IMPRESSION: Diffuse thickening of the hypopharynx which favors a pharyngitis. There is also thickening of the epiglottis raising the possibility of a superimposed epiglottitis. ACT 112: Negative or not required by law. Electronically signed by: Bib Fitch M.D. 09/24/2023 1:13 PM Soft Tissue Neck CT 09/24/23 13:20 CT OF THE NECK WITH IV CONTRAST CLINICAL HISTORY: Sore throat. COMPARISON STUDY: Neck radiographs performed earlier today. TECHNIQUE: Following IV administration of 90 mL of Optiray, helical axial images of the neck were obtained. Sagittal and coronal reconstructions were viewed. Automated exposure control was utilized for the study. A dose lowering technique was utilized adhering to the principles of ALARA. FINDINGS: Visualized portions of the intracranial contents are unremarkable. Orbits are within normal limits. Sinuses and mastoid air cells are clear. Major vasculature of the neck is patent. Parotid and right submandibular glands are normal. There is moderate left parapharyngeal edema, adjacent to the left submandibular gland. There is mild prevertebral edema. There is thickening of the bilateral aryepiglottic folds, left greater than right. There is also mild to moderate thickening of the epiglottis. No rim-enhancing fluid collection is present. There is no soft tissue gas. The pharyngeal/epiglottic edema results in moderate supraglottic airway narrowing. The bilateral palatine tonsils are mildly enlarged. Lung apices are clear. Mildly enlarged bilateral cervical lymph nodes are likely reactive. Index left level 2 node on image 183 of 405 measures 2.5 x 1.1 cm. IMPRESSION: 1. Findings consistent with pharyngitis. Superimposed epiglottitis cannot be excluded. Left parapharyngeal edema including thickening of the aryepiglottic folds, left greater than right and mild to moderate thickening of the epiglottis. No abscess. Mild prevertebral edema. The edema and soft tissue thickening results in moderate supraglottic airway narrowing. 2. Enlarged bilateral cervical lymph nodes which are likely reactive. 3. Mildly enlarged bilateral palatine tonsils. ACT 112: Negative or not required by law. Electronically signed by: David Kincaid M.D. 09/24/2023 1:56 PM Chest X-Ray 09/24/23 15:12 XR chest 1V portable HISTORY: sepsis COMPARISON: None. FINDINGS: The lungs are clear. Cardiac silhouette is normal in size. No pleural effusions. No pneumothorax. IMPRESSION: No acute process. ACT 112: Negative or not required by law. Electronically signed by: Bib Fitch M.D. 09/24/2023 3:41 PM I & O Totals 24 Hours 09/24/23 09/25/23 09/26/23 06:59 06:59 06:59 Intake Total 3385 / 3385 1000 / 1000 Balance 3385 / 3385 1000 / 1000 Cumulative 09/24/23 11:08 thru 09/25/23 09:27 Intake Total 4385 Balance 4385 RT Ventilator Mngmt (Last Documented) Ventilator Ordered Settings Respiratory Rate 17 09/25/23 11:00 Ventilator - PT Measurements Respiratory Rate 17 (1) Acute epiglottitis Airway obstruction: without obstruction Qualified Code(s): J05.10 - Acute epiglottitis without obstruction (2) Pharyngitis Pharyngitis/tonsillitis etiology: unspecified etiology Qualified Code(s): J02.9 - Acute pharyngitis, unspecified
[2023-09-25] MEDS: ICU Protocol for HYPERglycemia SCH ×3 (08:11→14:44)
[2023-09-25] MEDS: DEXAMETHASONE CONC 1 MG/ML 30 ML PO SCH (09:01)
[2023-09-25] MEDS: AMOXICILLIN/CLAVULANATE SUSP 250/62.5MG 5ML 75ML BTL PO SCH (09:02)
--- NOTE | 2023-09-25 11:57 | Billing Data ---
Date of Service September 25, 2023 Coding Level of Care Code 74469 SUB INP/OBS CARE
[2023-09-25] MEDS ORDERED: VANCOMYCIN LEVEL ONE (12:00)
--- NOTE | 2023-09-25 12:09 | Discharge Summary ---
Date of Service September 25, 2023 Admission HPI Per Admitting Provider Lise Zafar is a 23 year old female who presents to the ER with sore throat and intermittent fevers. Initial illness she was feeling generally unwell with mild sore throat over the weekend with chills but appeared to be recovering initially. On thursday she appeared to get worse with significant progression with chills, fatigue and sore throat over the last 24 hours. No difficulty breathing or abnormal breath sounds. Reports mild dry cough with feeling of phlegm getting stuck. No history of immunosuppression, severe infections or respiratory diseases. No nausea, vomiting, abdominal pain, diarrhea, urinary symptoms. No known significant exposure. Reports only recent travel to [facility] - returned on September 12. Principal Diagnosis Acute tonsillitis/pharyngitis/epiglottitis, sepsis Discharge Exam General-alert and oriented x3, no fevers, no chills HEENT-head atraumatic and normocephalic, pupils equal and reactive to light, extraocular muscles intact. Moderate tonsillitis noted Neck-no lymphadenopathy or thyromegaly, trachea midline Chest-clear to auscultation percussion. No rales, wheezing or rhonchi. No stridor Cardiac-regular rate and rhythm, normal S1 and S2, no murmurs Abdomen-normal bowel sounds, nontender, no hepatosplenomegaly Extremities-no cyanosis, clubbing, or edema Neuro-cranial nerves II through XII intact, motor and sensory function within normal limits, strength symmetrical 5/5, no focal deficits Psych-normal affect, normal mood Discharge Data Allergies Allergy/AdvReac Type Severity Reaction Status Date / Time No Known Allergies Allergy Unverified 09/24/23 14:40 Consultations 09/24/23 14:58 ED Decision to Admit Stat 09/24/23 16:10 Consult Chinese Instructor Routine Ordered Studies 09/24/23 13:20 CT soft tissue neck w con Stat Hospital Course (1) Acute epiglottitis: I suspect she simply had strep pharyngitis/tonsillitis without epiglottitis. She is stable at this time and will be discharged on amoxicillin suspension along with a tapering dose of prednisone. (2) Pharyngitis: Group A strep negative. Biofire upper respiratory panel PCR negative. No abscess therefore ENT consult deferred (3) Sepsis: Present on admission. Now resolved (4) Sinus tachycardia: Present on admission now resolved Plan Home today, September 25, on amoxicillin suspension and a tapering dose of prednisone Total Time Total Time Spent Total Time Spent (In Minutes): 45 minutes Discharge Plan Discharge Items Patient Disposition: Home - Self-Care Reason For Visit: EPIGLOTTITS Discharge Diagnosis: Acute tonsillitis/pharyngitis Activity: Resume your previous activity Non-emergency contact: Primary Care Provider Call non-emergency contact if: your symptoms worsen Follow-up/Referrals: PCP,NO [Primary Care Provider] - Diet: Regular Addtl Attending Provider Instructions: Take amoxicillin suspension for 1 week as directed. Take prednisone in a tapering dose fashion as directed Pending Studies at Discharge: No Stand-Alone Forms: My [employer], Smoking Cessation Medications and DC Order Prescriptions: New amoxicillin 400 mg/5 mL suspension for reconstitution 400 mg PO TID Qty: 100 0RF prednisone 10 mg tablet See Rx Instructions .ROUTE .COMPLEX Qty: 12 0RF Rx Instructions: 10 mg orally 3 times a day for 2 days, then 10 mg twice a day for 2 days, then 10 mg daily for 2 days, then stop Continued norethindrone-e.estradiol-iron [ FE 10/03 (28)] 1 mg-20 mcg (21)/75 mg (7) tablet 1 tab PO QAM ibuprofen 200 mg Tablet 200 mg PO Q6H PRN (Reason: PAIN/FEVER) Discharge Orders: Discharge Order (Routine); Ordered 09/25/23 Ordered By: Sesar Mckeon Admission Data Admit Date/Time: 09/24/23 15:17 Attending Provider: Sesar Mckeon Admit Provider: Justice Way Primary Care Provider: PCP,NO Other Providers: Justice Way; Lonny Bolanos Coding Level of Care Code 31906 INP/OBS DISCH >30 MIN Diagnoses Acute epiglottitis J05.10 Airway obstruction: without obstruction Pharyngitis J02.9 Pharyngitis/tonsillitis etiology: unspecified etiology Sepsis A41.9 Sinus tachycardia R00.0
[2023-09-25] MEDS ORDERED: cefTRIAXone SODIUM 2,000 MG in DEXTROSE 5 % MINI-B 50 ML IV SCH (15:00)
[2023-09-25] MEDS ORDERED: AMOXICILLIN/CLAVULANATE 875 MG TAB PO SCH (21:00)
[2023-09-30 07:52] LABS: Est GFR (African American) 146.4 ml/min; Est GFR (Non-African American) 126.3 ml/min
[2023-09-30 07:53] LABS: Creatinine Clr Calc Pharmacy 106.6 ml/min; Hematocrit (blood only) 44.7 % (37.0-47.0); Hemoglobin 14.9 g/dl (12.0-16.0); Red Blood Count 5.06 M/uL (4.20-5.40)
== END 2023-09-25 15:00 | disposition home or self-care (01) | DRG 872 ==
LOC: EDSEX → ED 11:08 → 1E 15:17 → SUATTDRO 15:17 → 1E 15:54